=== PATIENT | male | born 1950 | race Caucasian/White ===

== ENCOUNTER → 2023-08-06 11:20 | Outpatient (BNVA) | payer MEDICARE, MEDICAID, SELFPAY | PROVIDERS: PCP Family Medicine; Visit Provider Family Medicine | DX: Z00.00 Encounter for general adult medical examination without abnormal findings (principal); E78.5 Hyperlipidemia, unspecified; R35.0 Frequency of micturition | CPT/HCPCS: 80053; 80061; 84153; 85025 ==